=== PATIENT | male | born 1930 | race Caucasian/White ===

== ENCOUNTER 2018-05-20 07:55 | Observation (INO) | payer MEDICARE, OTHER ==
[~2018-05-20] VITALS: Ht 172.7 cm; Wt 75.8 kg
--- NOTE | ~2018-05-20 | HEMODYNAMI ---
PATIENT:NERY WATSON MEDICAL RECORD: [id number] : [birth year] LOCATION:[facility] D.2115 ADMISSION DATE: 05/20/18 Generatedon:05/21/201813:42 Patient name: NERY WATSON Patient #: [id number] SSN: DO B: 1930 Date of study: 05/21/2018 Page: Of Hemodynamic Procedure Report Patient Data Patient Demographics Procedure consent was obtained First Name: NERY Gender: Male Last Name: WALTER : 1930 Middle Initial: S Age: 87 year(s) Patient #: [id number] Race: Unknown Additional ID: [id number] Contact details [address]: [address] [place] [address] State: [place] City: [place] Zip code: [address] Past Medical History Allergies Allergen Reaction Date Comments Reported Other allergy 05/21/2018 SULFA,CODEINE, FLOMAX, LEVAQUIN Admission Admission Data Admission Date: 05/20/2018 Admission Time: 10:36 Room #: D.2115 Lab Results Lab Result Date: 05/21/2018 Lab Result Time: 0:00 Biochemistry Name Units Result Min Max BUN mg/dl 20 --(----)*- 7 18 Creatinine mg/dl 1.3 --(---*)-- 0.6 1.3 CBC Name Units Result Min Max Hemoglobin g/dl 11.6 *-(----)-- 13.5 17.5 Procedure Procedure Types Cath Procedure Diagnostic Procedure LHC LH w/Coronaries Sedation Charges Moderate Sedation up to 45 minutes PCI Procedure Coronary Stent Coronary Stent Initial Procedure Description Procedure Date Procedure Date: 05/21/2018 Procedure Start Time: 12:22 Procedure End Time: 13:36 Procedure Staff Name Function Jatin Mcleod MD Performing Physician Janneth Hendricks RT Monitor Omid Kellogg RT Scrub Martha Mack RN Nurse Jorje Ruvalcaba RN Vocational Aide Procedure Data Cath Procedure Fluoroscopy Diagnostic fluoroscopy Total fluoroscopy Time: time: 26.4 min 26.4 min Diagnostic fluoroscopy Total fluoroscopy dose: dose: 2496 mGy 2496 mGy Contrast Material Contrast Material Type Amount (ml) Isovue 300 208 Entry Location Entry Primary Successful Side Size Upsize Upsize Entry Closure Succes sful Closure Location (Fr) 1 (Fr) 2 (Fr) Remarks Device Remarks Femoral Right 5 Fr 6 Fr 6 Fr Exoseal artery Short Long Estimated blood loss: 10 ml Diagnostic catheters Device Type Used For End Catheter Placement MULTIPACK JL 4.0 5Fr Procedure catheter MULTIPACK 3DRC 5Fr Procedure catheter DIAGNOSTIC AR1 MOD 5Fr Procedure catheter ([id number]) DIAGNOSTIC AR2 MOD 5 Fr Procedure catheter ([id number]) DIAGNOSTIC AL1 5Fr Procedure catheter ([id number]) MULTIPACK Pigtail 5 Fr Procedure catheter Procedure Complications No complications Procedure Medications Medication Administration Route Dosage 0.9% NaCl I.V. 100 ml/hr Oxygen etCO2 Nasal cannula 2 l/min Lidocaine 2% added to field 20 Heparin Flush Bag added to field 2 bags (1000units/500ml NS) Versed I.V. 2 mg Fentanyl I.V. 50 mcg Versed I.V. 1 mg Fentanyl I.V. 25 mcg Versed I.V. 1 mg Fentanyl I.V. 25 mcg Heparin Bolus I.V. 7500 units Versed I.V. 1 mg Fentanyl I.V. 25 mcg Versed I.V. 1 mg Brilinta P.O. 90 mg Hemodynamics Rest Heart Rate: 68 (bpm) Pressure Samples Time Site Value (mmHg) Purpose Heart Use Rate(bpm) 12:39 LV 117/3,15 Snapshot 68 12:41 AO 116/47(72) Pullback 67 Gradients Valve Time Site Site 2 Mean SEP/DFP Peak To Heart Use 1 (mmHg) (sec/min) Peak Rate (mmHg) (bpm) Aortic 12:41 LV AO 7 16 67 116/47(72) Calculations Valve P-P Mean Valve Index Valve Source Name Gradient Area Flow (cm2) Aortic 7 7 Snapshots Pre Cath Intra NCS Post Cath Vital Signs Time Heart Resp SPO2 etCO2 NIBP (mmHg) Rhythm Pain Sedation Rate (ipm) (%) (mmHg) Status Level (bpm) 12:11:11 71 26 99 18.6 136/79(107) NSR 0 (11) 10(A) , No pain 12:15:33 65 19 97 14.1 128/57(99) NSR 0 (11) 10(A) , No pain 12:19:53 66 13 98 15 123/57(99) NSR 0 (11) 10(A) , No pain 12:24:11 67 13 96 16 121/57(95) NSR 0 (11) 10(A) , No pain 12:28:29 70 13 96 29 120/53(93) NSR 0 (11) 9(A) , No pain 12:32:45 68 13 97 29.8 117/57(96) NSR 0 (11) 9(A) , No pain 12:36:59 68 14 97 27.6 116/61(93) NSR 0 (11) 9(A) , No pain 12:41:13 68 13 98 29 117/56(93) NSR 0 (11) 10(A) , No pain 12:45:27 68 13 97 28.3 115/60(97) NSR 0 (11) 9(A) , No pain 12:49:41 65 12 97 24.5 116/58(90) NSR 0 (11) 9(A) , No pain 12:53:53 67 13 97 27.6 115/61(96) NSR 0 (11) 9(A) , No pain 12:58:05 67 12 97 29.8 117/62(102) NSR 0 (11) 10(A) , No pain 13:02:19 68 13 98 27.6 111/59(89) NSR 0 (11) 9(A) , No pain 13:06:31 68 12 97 30.5 117/58(98) NSR 0 (11) 9(A) , No pain 13:10:45 70 12 97 30.5 118/59(100) NSR 0 (11) 9(A) , No pain 13:14:57 69 12 97 30.5 122/63(99) NSR 0 (11) 9(A) , No pain 13:19:11 71 12 97 30.5 120/63(95) NSR 0 (11) 10(A) , No pain 13:23:22 68 12 97 29.8 130/68(99) NSR 0 (11) 9(A) , No pain 13:27:41 68 12 97 28.3 119/60(95) NSR 0 (11) 9(A) , No pain 13:31:54 67 13 97 28.3 127/60(106) NSR 0 (11) 10(A) , No pain 13:36:13 68 13 98 27.6 121/59(95) NSR 0 (11) 10(A) , No pain Medications Time Medication Route Dose Verified Delivered Reason Notes Effectiveness by by 12:14:54 0.9% NaCl I.V. 100 Jatin Martha used for ml/hr Harsha Mack lead sustainability specialist 12:15:00 Oxygen etCO2 2 Jatin Martha used for Nasal l/min Harsha Mack procedure cannula RN 12:15:06 Lidocaine 2% added 20ml Jatin Jatin for local to vial Harsha Mcleod MD anesthetic field 12:15:10 Heparin Flush added 2 Jatin Jatin used for Bag to bags Harsha Mcleod MD procedure (1000units/500ml field NS) 12:18:44 Versed I.V. 2 mg Jatin Martha for sedation Harsha Mack RN 12:18:54 Fentanyl I.V. 50 Jatin Martha for sedation mcg Harsha Mack RN 12:24:08 Versed I.V. 1 mg Jatin Martha for sedation Harsha Mack RN 12:24:12 Fentanyl I.V. 25 Jatin Martha for sedation mcg Harsha Mack RN 12:42:28 Versed I.V. 1 mg Jatin Martha for sedation Harsha Mack RN 12:42:33 Fentanyl I.V. 25 Jatin Martha for sedation mcg Harsha Mack RN 12:57:39 Heparin Bolus I.V. 7500 Jatin Martha for verif ied units Harsha Mack anticoagulation with Dr. LEONARD Mcloed 13:01:14 Versed I.V. 1 mg Jatin Martha for sedation Harsha Mack RN 13:01:18 Fentanyl I.V. 25 Jatin Martha for sedation mcg Harsha Mack RN 13:22:54 Versed I.V. 1 mg Jatin Martha for sedation Harsha Mack RN 13:31:42 Brilinta P.O. 90 mg Jatin Martha for Harsha garcia RN therapy Procedure Log Time Note 11:55:08 Jorje Ruvalcaba RN sent for patient. Start room use. 11:55:09 Signed procedure consent form obtained from patient. :55: Time tracking: Regular hours (M-F 7:00 - 5:00) 11:55:30 Plan of Care:Hemodynamics will remain stable., Cardiac rhythm will remain stable., Comfort level will be maintained., Respiratory function will remain adequate., Patient/ family verbilizes understanding of procedure., Procedure tolerated without complication., Recovers from procedure without complications.. 11:56:23 Patient allergic to Other allergySULFA,CODEINE, FLOMAX, LEVAQUIN 11:56:50 Lab Result : Creatinine 1.3 mg/dl 11::50 Lab Result : BUN 20 mg/dl 11:56:50 Lab Result : Hemoglobin 11.6 g/dl 12:10:04 Vital chart was started 12:14:54 0.9% NaCl 100 ml/hr I.V. was administered by Martha Mack RN; used for procedure; 12:15:00 Oxygen 2 l/min etCO2 Nasal cannula was administered by Martha Mack RN; used for procedure; 12:15:06 Lidocaine 2% 20ml vial added to field was administered by Jatin Mcleod MD; for local anesthetic; 12:15:10 Heparin Flush Bag (1000units/500ml NS) 2 bags added to field was administered by Jatin Mcleod MD; used for procedure; 12:16:21 Patient received from Med II to CCL 1 Alert and oriented. Tansferred to table in Supine position. 12:16:22 Warm blankets applied, and jose j hugger turned on for patient comfort. 12:16:22 Correct patient and procedure confirmed by team. 12:16:24 ECG and BP/O2 sat monitors applied to patient. 12:16:26 Baseline sample Acquired. 12:16:29 Rhythm: sinus rhythm 12:16:30 Full Disclosure recording started 12:16:36 Pre-procedure instructions explained to patient. 12:16:36 Pre-op teaching completed and patient verbalized understanding. 12:16:38 Family in patients room. 12:16:39 Patient NPO since Midnight. 12:16:41 Is patient on blood thinner?Yes 12:16:44 ACC The patient was administered the following blood thiners within the last 24 hours: ACCBrilinta 12:16:45 Patient diabetic? Yes. 12:16:46 If diabetic: On Metformin? Yes 12:16:50 If on Metformin: Last Dose? 05/18/2018 12:16:53 Previous problem with sedation/anesthesia? No ? 12:16:54 Snore? No 12:16:55 Sleep apnea? No 12:16:58 Deviated septum? No 12:16:59 Opens mouth fully? Yes 12:16:59 Sticks out tongue? Yes 12:17:01 Airway obstruction? No ? 12:17:03 Dentures? No ? 12:17:05 Pre procedure: right dorsailis pedis pulse 1+ Palpable, but thready & weak; easily obliterated 12:17:09 Patient pain scale 0/10 ?. 12:17:14 IV patent on arrival in right forearm with 0.9% NaCl at [facility]. 12:17:17 Lab results completed and on chart. 12:17:20 GROIN PREPPED DUE TO IV AT RIGHT WRIST 12:17:21 Right groin area was prepped with chlora-prep and draped in sterile fashion 12:17:22 Alarms reviewed by R. N. 12:17:22 Sharps counted by scrub and verified by R.N. 12:17:23 --------ALL STOP TIME OUT------ 12:17:24 Final Timeout: patient, procedure, and site verified with staff and physician. All members of the team are in agreement. 12:17:26 Right groin site verified by team. 12:17:29 Physical assessment completed. ASA score P 2 - A patient with mild systemic disease as per Jatin Mcleod MD. 12:17:33 Sedation plan: IV Moderate Sedation Medication:Versed, Fentanyl 12:18:44 Versed 2 mg I.V. was administered by Martha Mack RN; for sedation; 12:18:54 Fentanyl 50 mcg I.V. was administered by Martha Mack RN; for sedation; 12:19:24 Use device set Femoral Dx 12:19:25 ACIST Syringe (51848) opened to sterile field. 12:19:26 Bag Decanter (2002) opened to sterile field. 12:19:27 ACIST Hand Control (60386) opened to sterile field. 12:19:27 ACIST Manifold (88885) opened to sterile field. 12:19:28 Tegaderm 4 x 4 (1626W) opened to sterile field. 12:19:29 Medline Cath Pack ([id number]) opened to sterile field. 12:19:30 DIAGNOSTIC WIRE .035 260cm J wire (520688) opened to sterile field. 12:: DIAGNOSTIC Multipack 5Fr catheter set (TD9525) opened to sterile field. 12::32 SHEATH 5FR [place] (YTS439) opened to sterile field. 12::38 Procedure started. 12:22:04 Local anesthetic to right femoral artery with Lidocaine 2% by Jatin Mcleod MD.INITIAL ACCESS ONLY 12:24:08 Versed 1 mg I.V. was administered by Martha Mack RN; for sedation; 12::12 Fentanyl 25 mcg I.V. was administered by Martha Mack RN; for sedation; 12::24 A 5 Fr sheath was inserted into the Right Femoral artery 12:24:48 A MULTIPACK JL 4.0 5Fr catheter was advanced over the wire and used for Procedure. 12:27:30 LCA angiography performed. 12::31 Catheter exchanged over wire. 12:28:03 A MULTIPACK 3DRC 5Fr catheter was advanced over the wire and used for Procedure. 12:29:07 UNABLE TO ENGAGE RCA. 12:29:10 Catheter exchanged over wire. 12:30:08 A DIAGNOSTIC AR1 MOD 5Fr catheter (625221N) was advanced over the wire and used for Procedure. 12:31:18 UNABLE TO ENGAGE RCA 12:31:20 Catheter exchanged over wire. 12:32:02 A DIAGNOSTIC AR2 MOD 5 Fr catheter (708854F) was advanced over the wire and used for Procedure. 12:33:40 UNABLE TO ENGAGE RCA 12:33:41 Catheter exchanged over wire. 12:34:30 A DIAGNOSTIC AL1 5Fr catheter ([id number]) was advanced over the wire and used for Procedure. 12:37:02 RCA angiography performed. 12:37:22 Catheter exchanged over wire. 12:38:16 A MULTIPACK Pigtail 5 Fr catheter was advanced over the wire and used for Procedure. 12:38:23 LV gram done using JOSHI 12:38:31 Injector settings: Ml/sec: 10, Volume: 20, 12:39:04 LV hemodynamics recorded. 12:39:17 EF : 40 % 12:42:00 Catheter exchanged over wire. 12:42:28 Versed 1 mg I.V. was administered by Martha Mack RN; for sedation; 12:42:33 Fentanyl 25 mcg I.V. was administered by Martha Mack RN; for sedation; 12:42:41 SHEATH 6FR [place] (YCD333) opened to sterile field. 12:42:42 INFLATOR Merit BasixCompak (NE9510) opened to sterile field. 12:42:42 TUBING High Pressure Extension Tubing (Harsha) (TO2168M) opened to sterile field. 12:42:48 BMW 300cm Straight Bison 2 wire (8598146) opened to sterile field. 12:42:56 GUIDE 6FR XBLAD 3.5 catheter ([id number]) opened to sterile field. 12:44:05 Sheath upsized to a 6 Fr Short. 12:45:02 6 Fr XBLAD 3.5 guide catheter was inserted over the wire 12:47:46 Guide Catheter removed. unable to cannulate vessel. 12:50:01 GUIDE 6FR XBLAD 4.0 catheter (08562431) opened to sterile field. 12:50:09 Guide Catheter removed. unable to cannulate vessel. 12:51:02 Sheath upsized to a 6 Fr Long. 12:53:25 6F DESTINATION FOR BACK UP SUPPORT 12:53:27 6 Fr XBLAD 3.5 guide catheter was inserted over the wire 12:55:16 Guide Catheter removed. unable to cannulate vessel. 12:56:09 GUIDE 6FR EBU 4.0 guide catheter ([id number]) opened to sterile field. 12:56:35 6 Fr EBU 4 guide catheter was inserted over the wire 12:57:39 Heparin Bolus 7500 units I.V. was administered by Martha Mack RN; for anticoagulation; verified with Dr. Mcleod 13:01:14 Versed 1 mg I.V. was administered by Martha Mack RN; for sedation; 13:01:14 BMW 300 wire advanced. 13:01:18 Fentanyl 25 mcg I.V. was administered by Martha Mack RN; for sedation; 13:02:17 Wire advanced across lesion. 13:07:37 Place stent Inflation Number: 1 A Medtronic Integrity 2.75 X 12 stent was prepped and advanced across the Prox CX. The stent was deployed at 12 BOLIVAR for 0:10 (min:sec). 13:08:37 Stent catheter was removed intact over wire. 13:12:14 Inflate balloon Inflation number: 1 A EMERGE OTW 2.0 x 20 balloon ([id number]) was prepped and advanced across the Mid CX, then inflated to 10 BOLIVAR for 0:10 (min:sec). 13:12:52 Inflation number: 2 The EMERGE OTW 2.0 x 20 balloon ([id number]) was reinflated across the Mid CX, to 10 BOLIVAR for 0:10 (min:sec). 13:13:42 Balloon removed over the wire. 13:17:04 The INTEGRITY OTW 2.5 X 22 stent ([id number]) was advanced then removed because of failure to cross lesion 13:21:24 BALLOON USED FOR BMW WIRE EXCHANGE FOR A CHOICE ES 300 13:21:30 CHOICE PT Extra Support J 300cm guide wire ([id number]) opened to sterile field. 13:22:54 Versed 1 mg I.V. was administered by Martha Mack RN; for sedation; 13:23:40 Inflate balloon Inflation number: 3 A EMERGE OTW 2.0 x 15 balloon ([id number]) was prepped and advanced across the Mid CX, then inflated to 12 BOLIVAR for 0:10 (min:sec). 13:24:15 Inflation number: 4 The EMERGE OTW 2.0 x 15 balloon ([id number]) was reinflated across the Mid CX, to 10 BOLIVAR for 0:15 (min:sec). 13:25:31 Balloon removed over the wire. 13:27:26 The INTEGRITY OTW 2.5 X 22 stent ([id number]) was advanced then removed because of failure to cross lesion 13:30:41 LONG SHEATH EXCHANGED FOR SHORT SHEATH 13:31:42 Brilinta 90 mg P.O. was administered by Martha Mack RN; for antiplatelet therapy; 13:31:42 EXOSEAL 6Fr (EX600) opened to sterile field. 13:32:06 Sheath removed intact; hemostasis achieved with Exoseal to the Right Femoral artery. 13:32:46 Procedure ended.(Physican Out) 13:33:05 Fluoroscopy time 26.40 minutes. 13:33:44 Flurop Dose total: 2496 13:33:44 Fluoroscopy dose: 2496 mGy 13:33:52 Contrast amount:Isovue 300 208ml. 13:33:53 Sharps counted by scrub and verified by R.N. 13:33:56 Post-op/insertion site Right Femoral artery dressed using a 4 x 4 and Tegaderm. 13:33:59 Post-procedure physical assessment completed. ASA score P 2 - A patient with mild systemic disease as per Jatin Mcleod MD. 13:34:03 Post procedure rhythm: sinus rhythm 13:34:04 Estimated blood loss: 10 ml 13:34:05 Post procedure instruction explained to patient.Patient verbalizes understanding. 13:34:06 Patient needs reinforcement of post procedure teaching. 13:34:18 Procedure type changed to Cath procedure, Diagnostic procedure, LHC, LHC w/Coronaries, Sedation Charges, Moderate Sedation up to 45 minutes, PCI procedure, Coronary Stent, Coronary Stent Initial 13:36:32 Procedure and supply charges have been captured, reviewed, submitted and are correct. 13:36:35 Procedure Complication : No complications 13:36:37 Vital chart was stopped 13:36:37 See physician's report for complete and final results. 13:36:45 Report given to PCU. 13:36:46 Patient transfered to PCU with Stretcher. 13:36:48 Procedure ended. 13:36:48 Full Disclosure recording stopped 13:36:52 End room use (Document Last) Intervention Summary Intervention Notes Time ActionType Lesion and Equipment Action# Pressure Duration Attributes Used 13:07:37 Place stent Prox CX Medtronic 1 12 00:10 Integrity 2.75 X 12 stent 13:12:14 Inflate Mid CX EMERGE OTW 1 10 00:10 balloon 2.0 x 20 balloon ([id number]) 13:12:52 Reinflate Mid CX EMERGE OTW 2 10 00:10 balloon 2.0 x 20 balloon ([id number]) 13:17:04 Discard INTEGRITY Stent OTW 2.5 X 22 stent ([id number]) 13:23:40 Inflate Mid CX EMERGE OTW 3 12 00:10 balloon 2.0 x 15 balloon ([id number]) 13:24:15 Reinflate Mid CX EMERGE OTW 4 10 00:15 balloon 2.0 x 15 balloon ([id number]) 13:27:26 Discard INTEGRITY Stent OTW 2.5 X 22 stent ([id number]) Device Usage Item Name Manufacture Quantity Catalog Number Hospital Part Current Min imal Lot# / Charge Number Stock Stock Serial# Code ACIST Acist 1 94126 140262 785225 991374 20 Syringe Medical (59166) Systems Inc Bag Decanter Microtek 1 2001S 050622 17543 348913 5 (2001S) Medical Inc. ACIST Hand Acist 1 03116 424376 407591 019617 5 Control Medical (72852) Systems Inc ACIST Acist 1 39962 866258 907590 209679 5 Manifold Medical (63983) Systems Inc Tegaderm 4 x 3M 1 1626W 319266 841572 865475 5 4 (1626W) Medline Cath Medline 1 [id number] 584493 13115 103029 5 Pack ([id number]) DIAGNOSTIC St Aguilar 1 097681 760353 492773 339631 30 WIRE .035 260cm J wire (496968) DIAGNOSTIC Cardinal 1 VP2258 952854 98575 285855 30 Multipack Health 5Fr catheter set (AC0405) SHEATH 5FR Terumo 1 OWW316 359174 295383 102603 5 [place] (ZAC963) MULTIPACK JL Cardinal 1 965416 5 4.0 5Fr Health catheter MULTIPACK Cardinal 1 422433 5 3DRC 5Fr Health catheter DIAGNOSTIC Cardinal 1 513242P 982888 324711 183637 15 AR1 MOD 5Fr Health catheter (399390O) DIAGNOSTIC Cardinal 1 111803L 161950 815567 317249 20 AR2 MOD 5 Fr Health catheter (414188J) DIAGNOSTIC Cardinal 1 478082D 664638 043694 540703 15 AL1 5Fr Health catheter (832907J) MULTIPACK Cardinal 1 580964 5 Pigtail 5 Fr Health catheter SHEATH 6FR Terumo 1 QQQ853 817210 401199 919891 40 [place] (JCU202) INFLATOR Merit 1 KK0744 281663 495064 212628 15 Gridsum Medical BasixCompak (RS1746) TUBING High Merit 1 [id number] 077297 49186 477557 10 Pressure Medical Extension Tubing (Mcleod) (KY3283X) BMW 300cm Mcfadden 1 4072408 116944 713115 677879 5 Straight Vascular Bison 2 wire (7617768) GUIDE 6FR Cardinal 1 58083428 825044 908321 701072 10 XBLAD 3.5 Health catheter (40846994) GUIDE 6FR Cardinal 1 49742891 704228 275221 920282 3 XBLAD 4.0 Health catheter (25818879) GUIDE 6FR Medtronic 1 BP1VIU09 735244 84525 552495 1 EBU 4.0 guide catheter (WB0AVG25) INTEGRITY Medtronic 1 [id number] 660288 883933 332400 8 [id number] OTW 2.75 X 12 stent ([id number]) EMERGE OTW [place] 1 [id number] 243823 318893 273760 5 [id number] 2.0 x 20 Scientific balloon ([id number]) INTEGRITY Medtronic 1 [id number] 857259 811039 123999 4 [id number] OTW 2.5 X 22 stent ([id number]) CHOICE PT [place] 1 [id number] 935415 291052 777338 5 Extra Scientific Support J 300cm guide wire ([id number]) EMERGE OTW [place] 1 [id number] 996392 415610 5 61629828 2.0 x 15 Scientific balloon ([id number]) EXOSEAL 6Fr Cardinal 1 EX600 781206 318992 919249 10 (EX600) Health Signature Audit [place] Stage Time Signature Unsigned Intra-Procedure 05/21/2018 Janneth Hendricks 1:42:08 PM RT(R) Signatures Monitor : Janneth Hendricks Signature : RT Date : Time : [facility] [address] [place] [address]
[2018-05-20] MEDS ORDERED: BAYER CHEWABLE81 MG PO (08:01)
[2018-05-20] MEDS ORDERED: GLUCOPHAGE500 MG PO (08:02)
[2018-05-20] MEDS ORDERED: IRBESARTAN (08:03)
[2018-05-20] MEDS ORDERED: RANITIDINE HCL150 M1 PO (08:05)
[2018-05-20] MEDS ORDERED: OMEPRAZOLE40 MG (08:05)
[2018-05-20] MEDS ORDERED: BRILINTA90 MG PO (08:06)
[2018-05-20 08:58] LABS: BASOPHILS 0.1 % (0-2); EOSINOPHILS 2.8 % (0-7); HEMOGLOBIN 11.9 g/dL (13.5-17.5); IMMATURE GRANULOCYTES 0.1 % (0-5); LYMPHOCYTES 20.8 % (15-50); MCH 30.8 pg (26.0-34.0); MCV 90.7 fL (80.0-100.0); MEAN PLATELET VOLUME 9.2 fL (7.4-10.4); MONOCYTES 8.1 % (2-11); NEUTROPHILS 68.1 % (40-80); PLATELET COUNT 227 10x3/uL (130-400); RBC 3.86 10x6/uL (4.20-6.10); RDW 13.2 % (11.5-14.5); WBC 6.9 10x3/uL (4.8-10.8)
[2018-05-20 09:09] LABS: APTT 27.2 SECONDS (22.8-39.4); INR 1.04 (0.85-1.17); PROTIME 13.1 SECONDS (11.6-15.0)
[2018-05-20 09:14] LABS: ALKALINE PHOSPHATASE 56 U/L (46-116); ALT (SGPT) 26 U/L (10-68); BILIRUBIN - TOTAL 0.38 mg/dL (0.2-1.3); CALC OSMOLALITY 277 mosm/kg (275-300); CALCIUM 8.5 mg/dL (8.5-10.1); CARBON DIOXIDE 23.5 mmol/L (21.0-32.0); CHLORIDE - SERUM 103 mmol/L (98-107); CREATININE - SERUM 1.4 mg/dL (0.6-1.3); GLUCOSE 149 mg/dL (74-106); POTASSIUM - SERUM 4.8 mmol/L (3.5-5.1); PROTEIN - SERUM 6.5 g/dL (6.4-8.2); SODIUM 137 mmol/L (136-145); UREA NITROGEN 16 mg/dL (7-18); eGFR NON AFRICAN AMERICAN 51 mL/min (90-120)
[2018-05-20 09:33] LABS: CREATINE KINASE 135 UL (21-232)
[2018-05-20 09:41] LABS: TROPONIN-I 3.314 ng/mL (0.000-0.060)
[2018-05-20 11:26] LABS: CKMB 2.9 U/L (0.0-3.6); CREATINE KINASE 154 UL (21-232)
[2018-05-20 11:29] LABS: TROPONIN-I 2.956 ng/mL (0.000-0.060)
--- NOTE | 2018-05-20 12:05 | NUR ---
RECEIVED REPORT FROM ARMANI IN ER AT 6215. PATIENT TO UNIT SOON.
--- NOTE | 2018-05-20 12:23 | NUR ---
PATIENT ARRIVED TO UNIT AT THIS TIME VIA WHEELCHAIR FROM ER. PATIENT AMBULATORY, TRANSFERRED SELF TO BED FROM WHEELCHAIR. ALERT/ORIENTED. EKG AT THIS TIME. PATIENT AT BEDSIDE. CALL LIGHT WITHIN REACH.
--- NOTE | 2018-05-20 12:40 | NUR ---
HEPARIN DRIP INITIATED AND INFUSING AT THIS TIME. INFUSING AT 10ML/HR = 1000 UNITS PER HOUR. PTT ORDERED FOR EVERY 6 HOURS. FIRST 9TT TO BE DRAWN AT 1840. PATIENT CONSUMING NOON MEAL AT THIS TIME. NO DISTRESS.
[2018-05-20] MEDS ORDERED: MULTI-DAY VITAM1 TAB PO (12:50)
[2018-05-20] MEDS ORDERED: MAG-OX 400 MG400 MG PO (12:51)
[2018-05-20] MEDS ORDERED: VITAMIN B-2100 MG PO (12:51)
[2018-05-20 14:30] VITALS: BP 134/68
[2018-05-20 15:39] VITALS: BP 133/61; BMI 25.4
[2018-05-20 17:31] LABS: BASOPHILS 0.2 % (0-2); EOSINOPHILS 3.5 % (0-7); HEMATOCRIT 34.6 % (42.0-54.0); HEMOGLOBIN 11.6 g/dL (13.5-17.5); IMMATURE GRANULOCYTES 0.3 % (0-5); LYMPHOCYTES 27.8 % (15-50); MCH 30.7 pg (26.0-34.0); MCHC 33.5 g/dL (31.0-37.0); MCV 91.5 fL (80.0-100.0); MEAN PLATELET VOLUME 9.3 fL (7.4-10.4); MONOCYTES 9.5 % (2-11); NEUTROPHILS 58.7 % (40-80); PLATELET COUNT 230 10x3/uL (130-400); RBC 3.78 10x6/uL (4.20-6.10); RDW 13.1 % (11.5-14.5)
--- NOTE | 2018-05-20 17:43 | NUR ---
PAGED TO REQUEST IMITREX PATIENT HAS HX OF HEADACHES. RECEIVED NEW ORDERS FOR IMITREX. THANKED
[2018-05-20 17:47] LABS: INR 1.11 (0.85-1.17); PROTIME 13.8 SECONDS (11.6-15.0)
[2018-05-20 17:53] VITALS: BP 125/63
--- NOTE | 2018-05-20 18:03 | NUR ---
PTT RESULTED AT 73.0, PER PROTOCOL, NO CHANGE IN HEPARIN DRIP AT THIS TIME AND NEXT PTT DRAW IN AM.
[2018-05-20 18:09] LABS: CKMB 2.3 U/L (0.0-3.6); CREATINE KINASE 122 UL (21-232)
[2018-05-20 18:16] LABS: ANION GAP 11.3 mmol/L (8-16); CARBON DIOXIDE 27.1 mmol/L (21.0-32.0); CREATININE - SERUM 1.3 mg/dL (0.6-1.3); POTASSIUM - SERUM 4.4 mmol/L (3.5-5.1)
[2018-05-20 18:22] LABS: TROPONIN-I 2.844 ng/mL (0.000-0.060)
--- NOTE | 2018-05-20 18:25 | NUR ---
IMITREX ADMINISTERED FOR MIGRAINE AT THIS TIME. NO DISTRESS. CALL LIGHT WITHIN REACH.
--- NOTE | 2018-05-20 19:55 | NUR ---
INITIAL ROUNDS AND ASSESSMENT. PT LYING FLAT IN BED WITH ROOM DARK BECAUSE HE IS STILL HAVING A MIGRAINE. REMOVED NITRO PASTE THAT WAS ON HIS RIGHT CHEST WALL AND WILL CONTINUE TO MONITOR.
[2018-05-20 20:00] VITALS: BP 121/62
--- NOTE | 2018-05-20 21:57 | NUR ---
PT CONTINUING TO REST WITH EYES CLOSED. 61 CAF PER TELEMETRY. CALL LIGHT IN REACH.
[2018-05-20 23:21] LABS: CKMB 1.6 U/L (0.0-3.6); CREATINE KINASE 108 UL (21-232)
[2018-05-20 23:23] LABS: TROPONIN-I 2.848 ng/mL (0.000-0.060)
[2018-05-21] VITALS: BP 124/68
--- NOTE | 2018-05-21 02:16 | NUR ---
PT AWAKENED AND WAS CRYING OUT FOR ASSISTANCE SAYING THAT HE HAS HAD A HORRIBLE HEADACHE FOR HOURS AND NO ONE HAS DONE ANYTHING FOR HIM. EXPLAINED TO PATIENT THAT HE HAS BEEN LYING QUIETLY WITH EYES CLOSED EACH TIME THIS NURSE CHECKED HIS ROOM AND, THIS NURSE EVEN LAID HER HAND ON HIM AND SAID HIS NAME AND HE DID NOT RESPOND APPEARING IF TO BE ASLEEP. PT ALSO HAD VITAL SIGNS TAKEN AT MIDNIGHT AND DID NOT SAY ANYTHING TO HEAD TRANSFER CLERK ABOUT HEADACHE. PT LISTENING POORLY, RESTLESSLY MOVING ABOUT THE BED SAYING WHY CAN'T SOMEONE DO SOMETHING FOR HIM. SOME DISORIENTATION, REFERRING TO IT MORNING AND THAT HE HAD BEEN MISERABLE ALL NIGHT. ASKED PT TO LIST ANY MEDICATIONS THAT HE HAS TAKEN IN THE PAST FOR HIS MIGRAINES AND HE JUST KEEPS REPEATING THAT HE IS HURTING SO BAD AND NO ONE IS DOING ANYTHING. PHONE CALL TO , SHU WATSON, AND REPORTED ABOVE TO HER. SHE SAID THAT WHEN PT HAS HAD THESE EPISODES IN THE PAST, THEY HAVE GOTTEN SO BAD THAT HE COULD NOT EVEN TALK AND THEN SUDDENLY HE WOKE IN THE MIDDLE OF THE NIGHT AND WAS FINE. SHE IS ONLY FAMILIAR WITH HIM RECIEVING IMITREX 50MG FOR MIGRAINE AND HIS HOME ORDER SAYS HE CAN TAKE ONE IMITREX AND REPEAT IN 2 HOURS IF STILL HAS HEADACHE. PHONE CALL TO DR BERNARD, REPORTED ALL THE ABOVE AND THAT VSS, 62 CAF PER TELEMETRY, YET PT IS BECOMING UNMANAGEABLE WITH HIS FOCUS ON HIS MIGRAINE, NOW SAYING HE IS NAUSEATED AND IS MAKING WRETCHING SOUNDS, BUT NO EMESIS. NEW ORDERS RECIEVED. ADMINISTERED IV ZOFRAN KENDRICK WHILE PROM BURN OFF OPERATOR OBTAINED THE ORDERED IMITREX FROM ER. ADMINISTERED THE IMITREX 50MG BY MOUTH WITH A SIP OF WATER AND ENCOURAGED PT TO CALM DOWN, TAKE SLOW BREATHS. PLACED A COOL TOWEL ON HIS FOREHEAD. ALL LIGHTS OFF AND DOOR SHUT FOR DECREASED STIMULATION. MONITOR RESPONSE TO MEDICATION.
--- NOTE | 2018-05-21 03:57 | NUR ---
PT IS NOW LYING ON HIS RIGHT SIDE, EYES CLOSED, RESPS EVEN/NONLABORED. 66 CAF PER TELEMETRY. NURSE CALLED PT BY NAME AND HE DID NOT AWAKEN. HE APPEARS TO ASLEEP. , SHU, CALLED TO CHECK STATUS ON PATIENT. UPDATE GIVEN. WILL CONTINUE TO MONITOR.
[2018-05-21 07:15] LABS: HEMATOCRIT 34.5 % (42.0-54.0); HEMOGLOBIN 11.6 g/dL (13.5-17.5); MCH 30.9 pg (26.0-34.0); MCHC 33.6 g/dL (31.0-37.0); MCV 91.8 fL (80.0-100.0); MEAN PLATELET VOLUME 9.8 fL (7.4-10.4); RBC 3.76 10x6/uL (4.20-6.10); RDW 13.3 % (11.5-14.5)
[2018-05-21 07:28] LABS: WBC 8.5 10x3/uL (4.8-10.8)
[2018-05-21 08:37] VITALS: BP 132/57
--- NOTE | 2018-05-21 09:09 | NUR ---
TELEMETRY CAF. HR 78. CONSENTS SIGNED FOR [facility]. STATES NO MIGRAINE AT THIS TIME.
[2018-05-21 09:27] LABS: INR 1.07 (0.85-1.17); PROTIME 13.4 SECONDS (11.6-15.0)
[2018-05-21 09:29] LABS: APTT 45.9 SECONDS (22.8-39.4)
[2018-05-21 11:28] VITALS: BP 117/72
--- NOTE | 2018-05-21 12:00 | NUR ---
PRE-OPS GIVEN. TO MANAGER PAPER BY BED.
[2018-05-21 12:16] VITALS: Ht 172.7 cm; Wt 75.8 kg
--- NOTE | 2018-05-21 14:00 | NUR ---
PT RECEIVED VIA STRETCHER FROM [employer] [facility] FOR RECOVERY. PT SLEEPING COMFORTABLY. 6 FR EXOCELE TO R GROIN, DRESSING CDI NO BLEEDING OR SWELLING NOTED. R PEDAL PULSE PALPABLE. EXTREMITY WARM AND PINK. IV PATENT INFUSING VIA GRAVITY PER ORDERS. O2 SAT 95, PLACED ON 2L/NC O2. HR NSR RATE OF 68, BP 121/61. PT INSTRUCTED TO KEEP HEAD FLAT AND R LEG STRAIGHT. CALL LIGHT IN REACH.
--- NOTE | 2018-05-21 14:15 | NUR ---
PT RESTING QUIETLY W EYES CLOSED BUT AWAKES TO VERBAL STIMULI. PT REMINDED TO KEEP HEAD FLAT AND R LEG STRAIGHT. DENIES CHEST PAIN OR NAUSEA. R GROIN DRESSING CDI NO BLEEDING OR HEMATOMA NOTED. CALL LIGHT IN REACH.
--- NOTE | 2018-05-21 14:45 | NUR ---
PT RESTING QUIETLY W EYES CLOSED. R GROIN DRESSING CDI NO BLEEDING OR SWELLING NOTED. HR 67 NSR, BP 126/55. CALL LIGHT IN REACH.
--- NOTE | 2018-05-21 15:00 | NUR ---
PT DROWSY BUT AWAKE, DENIES PAIN OR NAUSEA. OJ GIVEN PER REQUEST. R GROIN REMAINS W NO BLEEDING OR SWELLING, DRESSING CDI. CALL LIGHT IN REACH. PHONE GIVEN FOR PT TO CALL HIS REGARDING DISCHARGE.
--- NOTE | 2018-05-21 15:33 | NUR ---
PT RESTING QUIETLY, VOIDED MOD AMOUNT CLEAR YELLOW URINE. R GROIN DRESSING REMAINS CDI NO BLEEDING OR HEMATOMA NOTED. CALL LIGHT IN REACH. DENIES PAIN OR NEEDS
--- NOTE | 2018-05-21 16:00 | NUR ---
PT RESTING QUIETLY, R GROIN DRESSING REMAINS CDI NO BLEEDING OR SWELLING NOTED. DENIES PAIN OR NEEDS. CALL LIGHT IN REACH.
--- NOTE | 2018-05-21 16:35 | NUR ---
PT VISITING W , DR BERNARD WAS IN AND DISCUSSED PROCEDURE RESULTS AND PLAN OF CARE WITH BOTH. R GROIN DRESSING REMAINS CDI NO BLEEDING OR HEMATOMA NOTED. CALL LIGHT IN REACH. DENIES PAIN OR NEEDS AT THIS TIME.
--- NOTE | 2018-05-21 17:01 | NUR ---
HOB ELEVATED SLIGHTLY. R GROIN DRESSING REMAINS CDI NO BLEEDING OR SWELLING NOTED. AT BEDSIDE. OFFERED PT SANDWICH REFUSES AT THIS TIME. TOLERATING OJ W/O NAUSEA. CALL LIGHT IN REACH. DENIES PAIN OR NEEDS
--- NOTE | 2018-05-21 17:45 | NUR ---
DISCHARGE INSTRUCTIONS REVIEWED W PT AND , BOTH VERBALIZED UNDERSTANDING. R GROIN DRESSING REMAINS CDI NO BLEEDING OR SWELLING NOTED.
--- NOTE | 2018-05-21 18:00 | NUR ---
IV REMOVED W CATH INTACT, MONITORS REMOVED. PT UP AND ASSISTED WITH DRESSING FOR DISCHARGE.
--- NOTE | 2018-05-21 18:15 | NUR ---
PT DISCHARGED VIA WC TO PRIVATE VEHICLE.
== END 2018-05-21 18:20 | disposition home or self-care (01) ==
LOC: D.ER 07:55 → D.EDHOLD 10:36 → OBSVTIME 10:36 → D.M2 11:04 → D.CLR 05-21 13:49
PROVIDERS: Family Medicine; ADMIT Internal Medicine Cardiovascular Disease
DX: I21.4 Non-ST elevation (NSTEMI) myocardial infarction (principal); I25.119 Atherosclerotic heart disease of native coronary artery with unspecified angina pectoris; I10 Essential (primary) hypertension; E11.9 Type 2 diabetes mellitus without complications

== ENCOUNTER 2018-09-11 08:43 | Day surgery (SDC) | payer MEDICARE, OTHER ==
[~2018-09-11 08:43] MED LIST: BAYER CHEWABLE81 MG PO; BRILINTA90 MG PO; GLUCOPHAGE500 MG PO; IRBESARTAN; MAG-OX 400 MG400 MG PO; MULTI-DAY VITAM1 TAB PO; OMEPRAZOLE40 MG; RANITIDINE HCL150 M1 PO; VITAMIN B-2100 MG PO
[2018-09-11 09:04] LABS: BASOPHILS 0 % (0-2); EOSINOPHILS 2.2 % (0-7); HEMATOCRIT 35.9 % (42.0-54.0); IMMATURE GRANULOCYTES 0.2 % (0-5); MCH 29.6 pg (26.0-34.0); MCHC 33.4 g/dL (31.0-37.0); MCV 88.4 fL (80.0-100.0); MEAN PLATELET VOLUME 8.6 fL (7.4-10.4); MONOCYTES 9.6 % (2-11); PLATELET COUNT 195 10x3/uL (130-400); RBC 4.06 10x6/uL (4.20-6.10); RDW 12.9 % (11.5-14.5); WBC 5.4 10x3/uL (4.8-10.8)
[2018-09-11 09:14] LABS: ANION GAP 15.6 mmol/L (8-16); CALCIUM 9.3 mg/dL (8.5-10.1); CARBON DIOXIDE 25.6 mmol/L (21.0-32.0); CREATININE - SERUM 1.2 mg/dL (0.6-1.3); POTASSIUM - SERUM 4.2 mmol/L (3.5-5.1)
[2018-09-11 09:33] LABS: INR 1.08 (0.85-1.17); PROTIME 13.5 SECONDS (11.6-15.0)
[2018-09-11] MEDS ORDERED: PLAVIX75 MG PO (10:10)
[2018-09-11] MEDS ORDERED: CO Q-10200 MG PO (10:11)
[2018-09-11] MEDS ORDERED: ELIQUIS2.5 MG PO (10:11)
[2018-09-11] MEDS ORDERED: METFORMIN HCL500 M1 PO (10:15)
[2018-09-11 10:32] VITALS: BMI 23.3
--- NOTE | 2018-09-11 12:26 | NUR ---
INSTRUCTIONS GIVEN TO FAMILY AND PT. IN ROOM TALKING TO PT
--- NOTE | 2018-10-01 19:28 | OP ---
PATIENT NAME: NERY WATSON MEDICAL RECORD: [id number] :[birth year] LOCATION:D[facility] ADMISSION DATE: SURGEON: LOLA GUTHRIE MD DATE OF OPERATION: 09/11/2018 PROCEDURE: EGD with biopsy, EGD with balloon dilatation. DESIGN CHECKER: Lola Guthrie MD SCOPE: Olympus video gastroscope and a CRE Microvasive balloon from 45-60 Brazilian. MEDICATIONS: Provided per TIVA anesthesia. The patient received 100 mg of propofol IV push, O2 10 liters per Ventimask. INDICATION FOR THE PROCEDURE: Heartburn, nausea, dysphagia as noted also on the upper GI, which showed some narrowing in the distal esophageal area. FINDINGS AND DESCRIPTION OF PROCEDURE: Informed consent was given. The patient was made comfortable with the above medications. After reaching an adequate level of sedation by slow IV push, the patient was placed on his left side. The endoscope was then advanced under direct visualization through the posterior pharyngeal area and advanced to the distal esophagus. At the distal esophageal area, a Schatzki's ring was appreciated and after the inspection part of the EGD was completed, a CRE microvasive balloon was placed in this area, inflated to 60-Brazilian, held in place for 1 minute without complication. The balloon was then deflated and removed. The patient was noted to have some very mild erosive distal esophagitis and biopsies were obtained. Also seen was a very small hiatal hernia, seen both on direct and retroflex views. On entering the stomach, mild inflammation was noted and a biopsy was taken at the antral area looking for the presence of Helicobacter pylori and also for histopathology. Throughout the duodenal bulb and second portion, only mild inflammation was appreciated and a biopsy was obtained. IMPRESSION: 1. 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 2. Small hiatal hernia. 3. Erosive esophagitis, biopsied. 4. Mild gastritis, biopsied. 5. Mild duodenitis. PLAN: 1. Caution with anti-inflammatory drugs. 2. The patient to follow reflux precautions stringently, both dietary and positional. He should avoid caffeine, which is also in chocolate, tobacco and alcohol. If problematic, he should also avoid tomato, citrus, fatty foods and peppermint. The patient will be asked not to eat late at night and sit up for a couple hours after every meal. He also should sleep with the head of the bed elevated should he reflux during nighttime hours. 3. Caution with anti-inflammatory drugs. 4. Pantoprazole 40 mg p.o. every morning and famotidine 20 mg p.o. at bedtime, prescriptions are provided. OPERATIVE REPORT [id number] WALTERGABRIEL S TRANSINT:[id number] Voice Confirmation ID: [id number] DOCUMENT ID: [id number] LOLA GUTHRIE MD at 1928 CC: DEJAN ABEL and BRYON ORTEGA [id number] DICTATION DATE: 09/11/18 1157 SPINNING ROOM WORKER: 09/11/18 1214 [facility] 09/11/18 [facility] [address] [place] [address]
== END 2018-09-11 12:47 | disposition home or self-care (01) ==
LOC: D.OPS 08:43
PROVIDERS: Anesthesiology; ATTEND Internal Medicine Gastroenterology
DX: K22.2 Esophageal obstruction (principal); K44.9 Diaphragmatic hernia without obstruction or gangrene; K22.10 Ulcer of esophagus without bleeding; K29.50 Unspecified chronic gastritis without bleeding; K29.80 Duodenitis without bleeding; Z01.812 Encounter for preprocedural laboratory examination